=== PATIENT | female | born 1965 | race Caucasian/White ===

== ENCOUNTER 2017-12-01 08:20 | Outpatient (CLI) | payer BC | END 2017-12-01 08:21 | disposition home or self-care (01) | LOC: BICMAMMO 08:20 | PROVIDERS: ATTEND Obstetrics & Gynecology | DX: R92.8 Other abnormal and inconclusive findings on diagnostic imaging of breast (principal); Z80.3 Family history of malignant neoplasm of breast | CPT/HCPCS: 77066; G0279 ==

== ENCOUNTER 2018-12-11 08:25 | Outpatient (CLI) | payer BC ==
--- NOTE | 2018-12-11 09:23 | MMO ---
Bilateral MAMMO Bilat Screen DDI+FIFI. CLINICAL HISTORY: Patient is 53 years old and is seen for screening. The patient has the following family history of breast cancer: mother, at age 50. The patient has no personal history of cancer. VIEWS: The views performed were: bilateral craniocaudal with tomosynthesis; bilateral mediolateral oblique with tomosynthesis; and right exaggerated craniocaudal. FILMS COMPARED: The present examination has been compared to prior imaging studies performed at [facility] on 10/13/2015, 10/16/2016, 10/24/2016, 04/15/2017 and 12/01/2017. MAMMOGRAM FINDINGS: There are scattered fibroglandular densities. Benign calcifications are noted bilaterally. Right nodule is stable. There are no suspicious masses, suspicious calcifications, or new areas of architectural distortion. IMPRESSION: THERE IS NO MAMMOGRAPHIC EVIDENCE OF MALIGNANCY. A ROUTINE FOLLOW-UP MAMMOGRAM IN 1 YEAR IS RECOMMENDED. THE RESULTS OF THIS EXAM WERE SENT TO THE PATIENT. ACR BI-RADS Category 2 - Benign finding MAMMOGRAPHY NOTE: 1. A negative mammogram report should not delay a biopsy if a dominant of clinically suspicious mass is present. 2. Approximately 10% to 15% of breast cancers are not detected by mammography. 3. Adenosis and dense breasts may obscure an underlying neoplasm.
== END 2018-12-11 08:26 | disposition home or self-care (01) ==
LOC: BICMAMMO 08:25
PROVIDERS: ATTEND Obstetrics & Gynecology
DX: Z12.31 Encounter for screening mammogram for malignant neoplasm of breast (principal); Z80.3 Family history of malignant neoplasm of breast
CPT/HCPCS: 77063; 77067

== ENCOUNTER 2019-07-19 19:30 | Outpatient (CLI) | payer BC | END 2019-07-19 19:31 | disposition home or self-care (01) | LOC: SLEEPLAB 19:30 | PROVIDERS: ATTEND Psychiatry & Neurology Neurology | DX: G47.33 Obstructive sleep apnea (adult) (pediatric) (principal) | CPT/HCPCS: 95811 ==

== ENCOUNTER 2019-08-25 14:17 | Outpatient (CLI) | payer BC ==
--- NOTE | 2019-08-25 16:00 | ULT ---
ULTRASOUND RIGHT AXILLA: 08/25/19 HISTORY: 54-year-old female with intermittent pain and swelling of the right axilla. FINDINGS: There is no evidence of lymphadenopathy, solid or cystic mass lesion, abnormal acoustic shadowing, or architectural distortion. CT would be more sensitive than ultrasound for the detection of axillary pathology. IMPRESSION: Negative right axillary ultrasound. POS: TPC
== END 2019-08-25 14:18 | disposition home or self-care (01) ==
LOC: BICULT 14:17
PROVIDERS: ATTEND Family Medicine
DX: R22.31 Localized swelling, mass and lump, right upper limb (principal)
CPT/HCPCS: 76999

== ENCOUNTER 2019-12-07 08:05 | Outpatient (CLI) | payer BC ==
--- NOTE | 2019-12-07 08:34 | RAD ---
Radiograph right hip 2 views: HISTORY: 54-year-old female with right hip pain FINDINGS: No fracture or dislocation. No high-grade joint space narrowing. Hip joint space maintained. Minimal subcapital osteophytosis. IMPRESSION: No major pathology.
--- NOTE | 2019-12-07 08:34 | RAD ---
Exam:2 views left hip HISTORY: Pain COMPARISON: None FINDINGS: Contour of the femoral head is maintained. No fracture. Preserved joint space. Visualized b eulogio pelvis is intact. Mild degenerative change in the symphysis pubis. IMPRESSION: No fractures or significant degenerative change.
--- NOTE | 2019-12-07 08:38 | RAD ---
AP PELVIS: HISTORY: Bilateral hip pain. FINDINGS: There are arthritic changes of the lower lumbar spine. SI joints are symmetric in appearance. No an kylosis. Minimal arthritic changes of the hips and symphysis region are noted. IMPRESSION: No acute changes. POS: C
== END 2019-12-07 08:06 | disposition home or self-care (01) ==
LOC: BICRAD 08:05
PROVIDERS: ATTEND Internal Medicine Rheumatology
DX: M25.551 Pain in right hip (principal); M25.552 Pain in left hip
CPT/HCPCS: 72170

== ENCOUNTER 2019-12-14 13:57 | Outpatient (CLI) | payer BC ==
--- NOTE | 2019-12-14 14:51 | MMO ---
Bilateral MAMMO Bilat Screen DDI+FIFI. CLINICAL HISTORY: Patient is 54 years old and is seen for screening. The patient has the following family history of breast cancer: mother, at age 50. The patient has no personal history of cancer. VIEWS: The views performed were: bilateral craniocaudal with tomosynthesis and bilateral mediolateral oblique with tomosynthesis. FILMS COMPARED: The present examination has been compared to prior imaging studies performed at [facility] on 04/15/2017, 12/01/2017, 12/11/2018 and 12/14/2019. This study has been interpreted with the assistance of computer-aided detection. MAMMOGRAM FINDINGS: There are scattered fibroglandular densities. Benign calcifications are noted bilaterally. Right nodule is stable. There are no suspicious masses, suspicious calcifications, or new areas of architectural distortion. IMPRESSION: THERE IS NO MAMMOGRAPHIC EVIDENCE OF MALIGNANCY. A ROUTINE FOLLOW-UP MAMMOGRAM IN 1 YEAR IS RECOMMENDED. THE RESULTS OF THIS EXAM WERE SENT TO THE PATIENT. ACR BI-RADS Category 2 - Benign finding MAMMOGRAPHY NOTE: 1. A negative mammogram report should not delay a biopsy if a dominant of clinically suspicious mass is present. 2. Approximately 10% to 15% of breast cancers are not detected by mammography. 3. Adenosis and dense breasts may obscure an underlying neoplasm. Reported by: TANIYA VELASCO MD Electonically Signed: [id number]
--- NOTE | 2019-12-14 14:56 | ULT ---
RIGHT BREAST ULTRASOUND: History Followup lung nodule. COMPARISON: 12/01/2017. FINDINGS: There is stable 4 mm septated cyst at the 11 o'clock position. IMPRESSION: BIRADS category 2 - benign findings. Return to annual mammographic screening.
== END 2019-12-14 13:58 | disposition home or self-care (01) ==
LOC: BICMAMMO 13:57
PROVIDERS: ATTEND Obstetrics & Gynecology
DX: Z12.31 Encounter for screening mammogram for malignant neoplasm of breast (principal); N60.09 Solitary cyst of unspecified breast; Z80.3 Family history of malignant neoplasm of breast
CPT/HCPCS: 77063; 77067

== ENCOUNTER 2020-01-17 10:29 | Outpatient (CLI) | payer BC ==
--- NOTE | 2020-01-17 13:22 | CT ---
CT ANGIOGRAM ABDOMEN WITH CONTRAST CT ANGIOGRAM PELVIS WITH CONTRAST CT ANGIOGRAM BILATERAL LOWER EXTREMITIES WITH CONTRAST: (Computed tomographic angiography, abdominal aorta and bilateral iliofemoral lower extremity runoff, with contrast material, and imaging postprocessing) HISTORY: 55-year-old female with "peripheral vascular disease" bilateral lower extremity pain TECHNIQUE: IV injection of iodinated contrast. Arterial bolus chasing technique. Scan acquisition from top of abdominal aorta to bilateral ankles. 3-D MIP reconstructions. FINDINGS: Minimal tiny single calcified plaque at distal right abdominal aorta just superior to bifurcation. An other tiny focal calcified atheromatous plaque at origin of right internal iliac artery. No other significant atheromatous plaque visualized, calcified or otherwise, in the rest of the major arteries . Otherwise, the abdominal aorta, bilateral renal, celiac, superior mesenteric, common iliac, internal iliac, external iliac, profunda femoral, common femoral, superficial femoral, and popliteal, arteries, are normal. The right proximal and mid segments of the right anterior tibial artery, are patent. The right JANEY is visualized until the upper ankle, at which point it is no longer visualized. Right dorsalis pedis artery is not visualized. The right peroneal and posterior tibial arteries, are normal. The left anterior tibial, posterior tibial, and peroneal, arteries, are visualized. There is little o r no contrast material in the left dorsalis pedis artery. IMPRESSION: 1) no significant atheromatous plaque visualized in major arteries. 2) 2 vessel runoff to the right foot. 3) three-vessel runoff to the left foot. 4) no contrast material visualized in the distalmost right anterior tibial artery and in the bilatera l dorsalis pedis arteries. However, no calcified plaque is visualized in these vessels. Recommend correlation with Doppler ultrasound of the dorsalis pedis arteries. 5) the rest of the major arteries are normal
[2020-01-17] MEDS ORDERED: Iopamidol-370 76% 500 ML 1 ML ONE (15:39)
== END 2020-01-17 10:30 | disposition home or self-care (01) ==
LOC: BICCT 10:29
PROVIDERS: ATTEND Psychiatry & Neurology Neurology
DX: I73.9 Peripheral vascular disease, unspecified (principal)
CPT/HCPCS: 75635; Q9967

== ENCOUNTER 2020-04-19 13:43 | Outpatient (CLI) | payer BC ==
--- NOTE | 2020-04-19 14:04 | ULT ---
ULTRASOUND SOFT TISSUE OTHER: 04/19/20 HISTORY: Localized swelling, mass in the head and neck. FINDINGS/IMPRESSION: Sonographic evaluation of the region of the left temporal region was performed and compared to the ri t one. There is soft tissue prominence on the left compared to the right. This is of unknown signif icance. Further evaluation with contrast enhanced CT scan of the head and neck is recommended. POS: OFF
== END 2020-04-19 13:44 | disposition home or self-care (01) ==
LOC: BICULT 13:43
PROVIDERS: ATTEND Family Medicine
DX: R22.0 Localized swelling, mass and lump, head (principal)
CPT/HCPCS: 76999

== ENCOUNTER 2020-05-08 14:20 | Outpatient (CLI) | payer BC ==
[~2020-05-08 14:20] MED LIST: Iopamidol 370 76% 100 ML VIAL ONE
--- NOTE | 2020-05-08 15:28 | CT ---
HEAD CT WITH AND WITHOUT CONTRAST: HISTORY: Abnormal swelling noted on ultrasound. Mass/lump in the head FINDINGS: Noncontrast head CT: No parenchymal hemorrhage. No extraaxial hematoma. No midline shift. Basilar cisterns are patent. Brain volume, age-appropriate. Cortical mcgraw-white matter differentiation is preserved. No hydrocephalus. Intact calvarium. Adequate aeration of the sinuses and mastoid air cells. Postcontrast head CT: No pathologic enhancement of the brain parenchyma. Scalp and soft tissues: There are no abnormal densities or enhancement. IMPRESSION: No acute abnormality on the pre and postcontrast head CT. Transcribed Date/Time: 05/08/2020 3:52 PM
--- NOTE | 2020-05-08 15:40 | CT ---
EXAM: CT NECK SOFT TISSUE POST CONTRAST: HISTORY:Abnormal swelling. Palpable nodule in the left temporal zygomatic region. COMPARISON:None CORRELATION:Soft tissue ultrasound 04/19/2020 FINDINGS: Brain parenchyma: No pathologic enhancement of the visualized brain parenchyma. Sinuses: Adequate aeration of the visualized paranasal sinuses and mastoid air cells. Orbits: Appropriate location of the ocular lenses. Symmetric attenuation the optic nerves and ocular rectus muscles. Retrobulbar fat is preserved. Nasopharynx:Adequate aeration. No mucosal abnormality. Oral cavity:Aerodigestive tract is patent. No mucosal abnormality. Limited evaluation of the oral cav ity due to dental amalgam artifact. Midline fatty raphae of the tongue is preserved. Hypopharynx: No mucosal abnormality. Epiglottis is normal caliber. Preepiglottic fat is preserved.. Larynx: Supraglottic, glottic and subglottic larynx have a normal mucosal appearance. Paraspinal muscles: Symmetric attenuation of the paraspinal muscles and symmetric attenuation of the sternocleidomastoid muscles.. Parotid and salivary glands: Symmetric attenuation of the parotid and submandibular glands Thyroid gland: 0.7 cm hypodensity in the left thyroid lobe.. Spine: Vertebral body height is maintained. No fracture. No significant central canal stenosis or sig nificant neural foraminal narrowing. Limited evaluation due to technique. Lymph nodes: No evidence of lymphadenopathy by size criteria Lung apices and upper mediastinum: No acute abnormality. Palpable marker: At the level of the left facial palpable marker, there is no evidence of a solid or cystic mass. No evidence of abnormal attenuation. The subcutaneous fat and soft tissues are similar to the contralateral side. IMPRESSION: 1. No CT evidence of abnormality corresponding to the left facial palpable marker. 2. Indeterminate left thyroid nodule. Nonemergent thyroid ultrasound.
== END 2020-05-08 14:21 | disposition home or self-care (01) ==
LOC: BICCT 14:20
PROVIDERS: ATTEND Family Medicine
DX: R22.0 Localized swelling, mass and lump, head (principal)
CPT/HCPCS: 70470; 70491; Q9967

== ENCOUNTER 2020-10-18 09:38 | Outpatient (CLI) | payer BC | END 2020-10-18 09:39 | disposition home or self-care (01) | LOC: BICMRI 09:38 | PROVIDERS: ATTEND Specialist | DX: M51.16 Intervertebral disc disorders with radiculopathy, lumbar region (principal); M47.26 Other spondylosis with radiculopathy, lumbar region; M48.061 Spinal stenosis, lumbar region without neurogenic claudication | CPT/HCPCS: 72148 ==

== ENCOUNTER 2020-12-25 08:20 | Outpatient (CLI) | payer BC | END 2020-12-25 08:21 | disposition home or self-care (01) | LOC: BICULT 08:20 | PROVIDERS: ATTEND Otolaryngology Plastic Surgery within the Head & Neck | DX: E04.2 Nontoxic multinodular goiter (principal) | CPT/HCPCS: 76536 ==

== ENCOUNTER 2021-01-09 14:01 | Outpatient (CLI) | payer BC | END 2021-01-09 14:02 | disposition home or self-care (01) | LOC: BICMAMMO 14:01 | PROVIDERS: ATTEND Family Medicine | DX: N63.10 Unspecified lump in the right breast, unspecified quadrant (principal) | CPT/HCPCS: 77066; G0279 ==

== ENCOUNTER 2021-06-06 10:51 | Outpatient (CLI) | payer BC | END 2021-06-06 10:52 | disposition home or self-care (01) | LOC: BICRAD 10:51 | PROVIDERS: ATTEND Family Medicine | DX: M25.532 Pain in left wrist (principal) ==

== ENCOUNTER 2021-11-22 08:38 | Outpatient (CLI) | payer BC | END 2021-11-22 08:39 | disposition home or self-care (01) | LOC: BICRAD 08:38 | PROVIDERS: ATTEND Family Medicine | DX: R05.9 Cough, unspecified (principal) | CPT/HCPCS: 71046 ==

== ENCOUNTER 2022-01-21 15:11 | Outpatient (CLI) | payer BC | END 2022-01-21 15:12 | disposition home or self-care (01) | LOC: BICULT 15:11 | PROVIDERS: ATTEND Otolaryngology Plastic Surgery within the Head & Neck | DX: E04.2 Nontoxic multinodular goiter (principal) | CPT/HCPCS: 76536 ==

== ENCOUNTER 2022-02-28 10:44 | Outpatient (CLI) | payer BC | END 2022-02-28 10:45 | disposition home or self-care (01) | LOC: BICMAMMO 10:44 | PROVIDERS: ATTEND Family Medicine | DX: Z12.31 Encounter for screening mammogram for malignant neoplasm of breast (principal); Z80.3 Family history of malignant neoplasm of breast | CPT/HCPCS: 77063; 77067 ==

== ENCOUNTER 2023-03-12 10:43 | Outpatient (CLI) | payer BC | END 2023-03-12 10:44 | disposition home or self-care (01) | LOC: BICMAMMO 10:43 | PROVIDERS: ATTEND Family Medicine | DX: Z12.31 Encounter for screening mammogram for malignant neoplasm of breast (principal); Z80.3 Family history of malignant neoplasm of breast | CPT/HCPCS: 77063; 77067 ==

== ENCOUNTER 2024-02-05 10:16 | Outpatient (CLI) | payer BC | END 2024-02-05 10:17 | disposition home or self-care (01) | LOC: BICULT 10:16 | PROVIDERS: ATTEND Otolaryngology Plastic Surgery within the Head & Neck | DX: E04.9 Nontoxic goiter, unspecified (principal); E04.2 Nontoxic multinodular goiter | CPT/HCPCS: 76536 ==

== ENCOUNTER 2024-07-28 10:26 | Outpatient (CLI) | payer BC | END 2024-07-28 10:27 | disposition home or self-care (01) | LOC: BICCT 10:26 | PROVIDERS: ATTEND Physician Assistant Medical | DX: R10.9 Unspecified abdominal pain (principal); R11.0 Nausea; R93.5 Abnormal findings on diagnostic imaging of other abdominal regions, including retroperitoneum | CPT/HCPCS: 74177; Q9967 ==

== ENCOUNTER 2024-09-21 07:58 | Outpatient (CLI) | payer BC | END 2024-09-21 07:59 | disposition home or self-care (01) | LOC: BICMRI 07:58 | PROVIDERS: ATTEND Psychiatry & Neurology Neurology | DX: M51.16 Intervertebral disc disorders with radiculopathy, lumbar region (principal); Z98.890 Other specified postprocedural states | CPT/HCPCS: 72148 ==